=== PATIENT | female | born 1960 | race Caucasian/White ===

== ENCOUNTER 2017-08-02 23:52 | Emergency (ER) | payer OTHER ==
[~2017-08-02] VITALS: Ht 152.4 cm; Wt 88.9 kg
[~2017-08-02 23:52] MED LIST: ASPIRIN81 M1 PO; FLEXERIL10 MG PO; MEDROL DOSEPAK4 MG PO; NAPROSYN500 MG PO; OMEPRAZOLE40 M1 PO; Vicodin,Norco 5/325 PO
[2017-08-03 00:33] LABS: BASOPHIL (%) 0.5 % (0-1); BASOPHIL COUNT 0.1 K/uL (0-0.1); EOSINOPHIL (%) 0.6 % (0-5); EOSINOPHIL COUNT 0.1 K/uL (0-0.3); HEMATOCRIT 42.3 % (36.0-46.0); HEMOGLOBIN 15.3 G/DL (11.9-15.5); IMMATURE GRANULOCYTE (%) 0.4 % (0.0-0.7); LYMPHOCYTE (%) 11.2 % (15-42); MCH 29.7 PG (29.0-34.0); MCHC 36.2 G/DL (30.0-36.0); MONOCYTE (%) 4.4 % (3-12); MONOCYTE COUNT 0.4 K/uL (0-0.8); NEUTROPHIL (%) 82.9 % (45-76); NEUTROPHIL COUNT 7.7 K/uL (1.8-6.4); PLATELET COUNT 274 K/uL (156-360); RBC DIS.WIDTH-CV 11.6 % (11.8-14.6); RED BLOOD COUNT 5.16 M/uL (3.80-5.20); WHITE BLOOD COUNT 9.3 K/uL (4.1-10.2)
[2017-08-03 00:45] LABS: ALBUMIN 4.1 g/dL (3.2-4.8); CHLORIDE 110 mEq/L (99-109); POTASSIUM 3.4 mEq/L (3.7-5.4); SODIUM 143 mEq/L (136-147)
[2017-08-03 00:47] LABS: GLUCOSE 129 mg/dL (70-99); TOTAL PROTEIN 6.9 g/dL (6.4-8.3)
[2017-08-03 00:49] LABS: TOTAL BILIRUBIN 0.4 mg/dL (0.0-1.0)
[2017-08-03 00:51] LABS: ALKALINE PHOSPHATASE 97 IU/L (3-129); CREATININE 0.9 mg/dL (0.6-1.3); GFR ESTIMATE (CALCULATED) > 59 mL/min/
[2017-08-03 00:52] LABS: UREA NITROGEN (BUN) 19 mg/dL (9-23)
[2017-08-03 00:53] LABS: AST (GOT) 19 IU/L (2-34)
[2017-08-03 00:54] LABS: ALT (GPT) 28 IU/L (3-49)
[2017-08-03 00:54] LABS: APPEARANCE SL.HAZY ((CLEAR)); BILIRUBIN NEGATIVE; BLOOD LARGE; COLOR YELLOW ((YELLOW)); GLUCOSE (STRIP) NEGATIVE; KETONES 20; LEUKOCYTES NEGATIVE; NITRITE NEGATIVE; PROTEIN (STRIP) 30; SPECIFIC GRAVITY 1.015 (1.000-1.030); UROBILINOGEN 0.2 MG/DL (0.2-1.0)
[2017-08-03 00:59] LABS: TROP-I INTERPRETATION NEGATIVE; TROPONIN-I < 0.01 ng/mL (0.0-0.30)
[2017-08-03 01:14] LABS: BACTERIA RARE /HPF; CALCIUM OXALATE CRYSTALS 1+ /HPF; EPITHELIAL CELLS RARE /HPF; HYALINE CASTS 0-5 /LPF; MUCUS TRACE /LPF; RED BLOOD CELLS TNTC /HPF (0-5); UCUL ADDED? YES; WHITE BLOOD CELLS 0-5 /HPF (0-5)
[2017-08-03] MEDS ORDERED: ZOFRAN ODT4 MG PO (03:05)
[2017-08-03] MEDS ORDERED: MOTRIN800 MG PO (03:05)
[2017-08-03] MEDS ORDERED: PERCOCET 5/31 TABLET PO (03:05)
[2017-08-03] MEDS ORDERED: FLOMAX0.4 MG PO (03:05)
[2017-08-03 03:28] VITALS: BP 103/59
== END 2017-08-03 03:30 | disposition home or self-care (01) ==
LOC: EME → EDBD 23:52 → EME 23:52
PROVIDERS: Emergency Medicine
DX: N13.2 Hydronephrosis with renal and ureteral calculous obstruction (principal); K21.9 Gastro-esophageal reflux disease without esophagitis; Z79.82 Long term (current) use of aspirin; Z79.891 Long term (current) use of opiate analgesic; Z87.891 Personal history of nicotine dependence; Z90.49 Acquired absence of other specified parts of digestive tract; Z95.9 Presence of cardiac and vascular implant and graft, unspecified; Z88.5 Allergy status to narcotic agent
CPT/HCPCS: 71046; 74176; 80053; 81003; 84484; 85025; 87086; 93005; 99281; 99285; J1885; J2405; J3010; J7030